=== PATIENT | female | born 1930 | race Caucasian/White ===

== ENCOUNTER 2020-05-09 15:30 | Emergency (ER) | payer MEDICARE, OTHER ==
--- NOTE | 2020-05-09 15:43 | ER Document Report ---
ED Medical Screen (RME) - General Chief Complaint: Altered Mental Status Stated Complaint: ALTERED MENTAL STATUS Time Seen by Provider: 05/09/20 15:36 Mode of Arrival: Wheelchair Information source: Legal Guardian Cannot obtain history due to: Dementia Notes: 89-year-old female presented to ED for increased altered mental status with increased confusion. Her power of research attorney states that she is her confusion is much worse since . She states she is walking around inside the house and outside the house naked. She states she is masturbating herself in front of the power turn his children. She states she is also goes in the bathroom naked and leaves the door open in front of the young children. Problem turning states her children 5 and 10 years old and she cannot keep this patient in her home anymore. She states that family convinced her to take a power of research attorney for this patient on August 2017. She states the patient is much worse now and she really cannot handle her at home with her children. She states she talked to social services technician and because she forgot 1 form then closed the case. She states she is trying to get her placed but she does not have a way to do it. I have ordered blood and urine to rule out urinary tract infection and other causes for her increased confusion. Power of research attorney states she needs to be placed in a facility to care for her. I have greeted and performed a rapid initial assessment of this patient. A comprehensive ED assessment and evaluation of the patient, analysis of test results and completion of medical decision making process will be conducted by an additional ED providers. - Related Data Allergies/Adverse Reactions: No Known Allergies Allergy (Unverified 05/09/20 15:41)
[2020-05-09 16:13] LABS: ABSOLUTE EOSINOPHILS # (AUTO) 0.1 10^3/uL (0.0-0.6); ABSOLUTE LYMPHOCYTES (AUTO) 1.6 10^3/uL (0.5-4.7); ABSOLUTE MONOCYTES (AUTO) 0.4 10^3/uL (0.1-1.4); ABSOLUTE NEUT (AUTO) 3.3 10^3/uL (1.7-8.2); BASOPHILS % (AUTO) 0.9 % (0-2); EOSINOPHILS % (AUTO) 1.7 % (0-6); HEMATOCRIT 42.2 % (36.0-47.0); HEMOGLOBIN 14.6 g/dL (12.0-15.5); LYMPHOCYTES % (AUTO) 29.8 % (13-45); MEAN CORPUSCULAR HEMOGLOBIN 34.4 pg (27.0-33.4); MEAN CORPUSCULAR HGB CONC 34.5 g/dL (32.0-36.0); MEAN CORPUSCULAR VOLUME 100 fl (80-97); MONOCYTES % (AUTO) 7.2 % (3-13); PLATELET COUNT 166 10^3/uL (150-450); RED BLOOD COUNT 4.24 10^6/uL (3.72-5.28); RED CELL DISTRIBUTION WIDTH 12.7 % (11.5-14.0); SEGMENTED NEUTROPHILS % (AUTO) 60.4 % (42-78); TOTAL CELLS COUNTED % (AUTO) 100 %; WHITE BLOOD COUNT 5.4 10^3/uL (4.0-10.5)
[2020-05-09 16:18] LABS: PROTHROMBIN TIME 13.4 SEC (11.4-15.4)
[2020-05-09 16:34] LABS: ALBUMIN 4.1 g/dL (3.5-5.0); ALKALINE PHOSPHATASE 69 U/L (38-126); ANION GAP 9 (5-19); ASPARTATE AMINO TRANSFERASE 23 U/L (14-36); BILIRUBIN,DIRECT 0.3 mg/dL (0.0-0.4); BILIRUBIN,TOTAL 1.1 mg/dL (0.2-1.3); BLOOD UREA NITROGEN 12 mg/dL (7-20); CALCIUM 9.2 mg/dL (8.4-10.2); CARBON DIOXIDE 28 mmol/L (22-30); CHLORIDE 102 mmol/L (98-107); GLUCOSE 96 mg/dL (75-110); POTASSIUM 3.9 mmol/L (3.6-5.0); TOTAL PROTEIN 7.2 g/dL (6.3-8.2)
[2020-05-09 16:36] LABS: ALCOHOL < 10 mg/dL (NONE DETECTED)
--- NOTE | 2020-05-09 18:53 | RADIOLOGY REPORT (SQ) ---
EXAM DESCRIPTION: CHEST SINGLE VIEW IMAGES COMPLETED DATE/TIME: 05/09/2020 6:30 pm REASON FOR STUDY: AMS COMPARISON: None. NUMBER OF VIEWS: One view. TECHNIQUE: Single frontal radiographic view of the chest acquired. LIMITATIONS: None. FINDINGS: LUNGS AND PLEURA: No opacities, masses or pneumothorax. No pleural effusion. MEDIASTINUM AND HILAR STRUCTURES: No masses. Contour normal. HEART AND VASCULAR STRUCTURES: Heart normal in size. Normal vasculature. BONES: No acute findings. HARDWARE: None in the chest. OTHER: No other significant finding. IMPRESSION: NO SIGNIFICANT RADIOGRAPHIC FINDING IN THE CHEST. TECHNICAL DOCUMENTATION: JOB ID: [id number] 2010 [employer]- All Rights Reserved Reading location - IP/workstation name: [email or web address]
--- NOTE | 2020-05-09 18:56 | RADIOLOGY REPORT (SQ) ---
EXAM DESCRIPTION: CT HEAD WITHOUT IMAGES COMPLETED DATE/TIME: 05/09/2020 6:36 pm REASON FOR STUDY: AMS COMPARISON: None. TECHNIQUE: Axial images acquired through the brain without intravenous contrast. Images reviewed wi th bone, brain and subdural windows. Images stored on PACS. All CT scanners at this facility use dose modulation, iterative reconstruction, and/or weight based d osing when appropriate to reduce radiation dose to as low as reasonably achievable (ALARA). [facility]: Dose Right [facility]: CareDose [facility]: Dose Right [facility]: Teradose 4D [facility]: [employer] RADIATION DOSE: CT Rad equipment meets quality standard of care and radiation dose reduction techniq ues were employed. CTDIvol: 53.2 mGy. DLP: 1017 mGy-cm.mGy. LIMITATIONS: None. FINDINGS: VENTRICLES: Prominent. CEREBRUM: No masses. No hemorrhage. No midline shift. Areas of low density in the white matter mos t likely due to chronic micro-vascular ischemic change. No evidence for acute infarction. Heavy layla cifications of the carotid siphons are present. CEREBELLUM: No masses. No hemorrhage. No alteration of density. No evidence for acute infarction. EXTRAAXIAL SPACES: Age-related involutional change. No fluid collections. No masses. ORBITS AND GLOBE: No intra- or extraconal masses. Normal contour of globe without masses. CALVARIUM: No fracture. PARANASAL SINUSES: No fluid or mucosal thickening. SOFT TISSUES: No mass or hematoma. OTHER: No other significant finding. IMPRESSION: No acute intracranial hemorrhage, mass effect/ midline shift, or large vessel territory hypodensity. Background of chronic microvascular ischemic and age-related involutional changes. EVIDENCE OF ACUTE STROKE: NO. TECHNICAL DOCUMENTATION: JOB ID: [id number] Quality ID # [id number]: Final reports with documentation of one or more dose reduction techniques (e.g., Au tomated exposure control, adjustment of the mA and/or kV according to patient size, use of iterative reconstruction technique) 2010 [employer]- All Rights Reserved Reading location - IP/workstation name: [email or web address]
--- NOTE | 2020-05-09 19:19 | EKG REPORT ---
SEVERITY:- NORMAL ECG - SINUS RHYTHM : Confirmed by: Bienvenido Gaffney MD 09-May-2020 19:18:49
[2020-05-09 21:03] LABS: AMORPHOUS SEDIMENT,URINE TRACE /HPF; APPEARANCE,URINE SLIGHTLY-CLOUDY; BILIRUBIN,URINE NEGATIVE (NEGATIVE); COLOR,URINE YELLOW; GLUCOSE, URINE NEGATIVE (NEGATIVE); KETONES,URINE 20 mg/dL (NEGATIVE); LEUKOCYTE ESTERASE,URINE NEGATIVE (NEGATIVE); NITRITE,URINE NEGATIVE (NEGATIVE); PROTEIN,URINE NEGATIVE (NEGATIVE); URINE SPECIFIC GRAVITY 1.017
[2020-05-09 21:16] LABS: URINE AMPHETAMINES SCREEN NEGATIVE; URINE BARBITURATES SCREEN NEGATIVE; URINE BENZODIAZEPINES SCREEN NEGATIVE; URINE COCAINE SCREEN NEGATIVE; URINE MARIJUANA (THC) SCREEN NEGATIVE; URINE METHADONE SCREEN NEGATIVE; URINE PHENCYCLIDINE SCREEN NEGATIVE
[2020-05-09] MEDS ORDERED: NORMAL SALINE 500 ML IV ONE (21:30)
--- NOTE | 2020-05-09 22:13 | ER Document Report ---
ED General - General Chief Complaint: Altered Mental Status Stated Complaint: ALTERED MENTAL STATUS Time Seen by Provider: 05/09/20 15:36 Mode of Arrival: Wheelchair - HPI Notes: Patient is an 89-year-old female with a past medical history of dementia who presents with her POA for worsening mental status. Her POA states that the patient lives with her for the past year. They are originally from [place] where she had home health care 3 days a week. She does not have that here. She does go to the adult daycare 4 days a week. The POA states that patient has been having worsening of her mental status since . She states that she has been walking around naked. Today, she walked out of the house naked. The POA has 2 young kids at home and is concerned that she has been acting like this in front of them. She states she is unable to take care of her at home anymore and would like her to be placed somewhere. She states that she has had decline in her talking ability as well. She has been taking her medications as prescribed. No recent illnesses. - Related Data Allergies/Adverse Reactions: No Known Allergies Allergy (Unverified 05/09/20 15:41) Past Medical History - General Information source: Legal Guardian - Social History Smoking Status: Unknown if Ever Smoked Family History: Other Review of Systems - Review of Systems -: Yes ROS unobtainable due to patient's medical condition Neurological/Psychological: Dementia Physical Exam - Vital signs Vitals: Temp Pulse Resp BP Pulse Ox 97.4 F 66 16 151/70 H 97 05/09/20 15:36 05/09/20 15:36 05/09/20 15:36 05/09/20 15:36 05/09/20 15:36 - General General appearance: Appears well Notes: VITAL SIGNS: Within normal limits. GENERAL: No acute distress, non-toxic appearance. HEAD: Normal with no signs of head trauma. EYES: EOMI, conjunctiva normal, no discharge. EARS: Hearing grossly intact. NOSE: Normal. NECK: Normal range of motion, no tenderness, supple, no lymphadenopathy, No adenopathy, no JVD. CHEST: Clear breath sounds bilaterally. No wheezes, rales, or rhonchi. CARDIAC: Regular rate and rhythm. VASCULAR: No Edema. Peripheral pulses normal and equal in all extremities. ABDOMEN: Normal and soft with no tenderness, no masses or pulsatile masses. GASTROINTESTINAL: Bowel sounds normal GENITOURINARY: Normal, No tenderness LYMPATHTIC: No lymphadenopathy noted. MUSCULOSKELETAL: Good range of motion of all major joints. Extremities without clubbing, cyanosis or edema. NEUROLOGICAL: Alert. No focal sensory or strength deficits.Follows commands appropriately. Does not speak but is able to follow simple commands and moves all extremities. SKIN: Normal appearance with no rashes or lesions. Course - Re-evaluation Re-evalutation: 05/09/20 22:12 Patient's work-up was unremarkable. She does not have evidence of infection or head injury. She will need to have social work consulted. Nursing staff states that she is talking now. I did discuss with the hospitalist who agreed that patient should be a social hold and does not need to be admitted. I reviewed her medications and ordered medications that she had recently been prescribed. She will need a formal pharmacy med rec in the morning. 05/10/20 00:58 05/10/20 01:59 - Vital Signs Vital signs: Temp Pulse Resp BP Pulse Ox 97.4 F 59 L 20 161/51 H 97 05/09/20 23:54 05/09/20 23:54 05/09/20 23:54 05/09/20 23:54 05/09/20 23:54 - Laboratory Result Diagrams: 05/09/20 16:04 05/09/20 16:04 Laboratory results interpreted by me: 05/09/20 05/09/20 05/09/20 16:04 16:04 20:22 MCV 100 H MCH 34.4 H Creatinine 0.49 L Urine Ketones 20 H Urine Urobilinogen 2.0 H Urine Ascorbic Acid 20 H Discharge - Discharge Clinical Impression: Mental status alteration Qualifiers: Altered mental status type: unspecified Qualified Code(s): R41.82 - Altered mental status, unspecified Dementia Qualifiers: Dementia type: unspecified type Dementia behavioral disturbance: with behavioral disturbance Qualified Code(s): F03.91 - Unspecified dementia with behavioral disturbance Condition: Stable Disposition: OTHER
[2020-05-10] MEDS ORDERED: HALOPERIDOL LACTATE INJ 5 MG/1 ML VIAL IV ONE (02:43)
[2020-05-10] MEDS ORDERED: HALOPERIDOL LACTATE INJ 5 MG/1 ML VIAL IM ONE (02:56)
[2020-05-10] MEDS: LEVOTHYROXINE SODIUM 0.112 MG TABLET PO SCH (08:13)
[2020-05-10] MEDS: AMLODIPINE BESYLATE 5 MG TABLET PO SCH (10:42)
[2020-05-10] MEDS: DONEPEZIL HCL 5 MG TABLET PO SCH (21:13)
[2020-05-10] MEDS: ATORVASTATIN CALCIUM 20 MG TABLET PO SCH (21:13)
[2020-05-11] MEDS: LEVOTHYROXINE SODIUM 0.112 MG TABLET PO SCH (05:13)
[2020-05-11] MEDS: AMLODIPINE BESYLATE 5 MG TABLET PO SCH (09:54)
--- NOTE | 2020-05-11 16:19 | ER Document Report ---
Doctor's Note Notes: 05/11/20 16:18 Patient is resting comfortably in the bed with no complaints. She is easily arousable. She denies any pain or problems at this time. Patient is currently awaiting placement. Social work is asked that I obtain a consultation from psychiatry secondary to patient having dementia with behavioral disturbances as this will help to facilitate placement. This order has been placed.
--- NOTE | 2020-05-11 17:14 | ER Document Report ---
Doctor's Note Notes: 05/11/20 17:13 Provider note to assess status of this patient. Patient is resting comfortably awaiting placement. Patient has a history of dementia otherwise is doing well. Please note this is a note concerning 10 May yesterday. I do not have enough time to place a note yesterday.
--- NOTE | 2020-05-11 18:53 | PSYCHOLOGICAL NOTE ---
Psych Note - Psych Note Date seen by psych provider: 05/11/20 Time seen by psych provider: 18:00 Psych Note: Reason for Consult: Medication recommendations patient presented with caregiver/POA; stated patient has had an increase in behaviors of masturbating (patient is suffering from uterine prolapse and appears the patient's caregiver was misunderstanding the patient's attempts at "fixing" the placement of her uterus), walking around naked, doesn't close doors and this morning was found outside naked. states she can no longer take care of her, states there is also a 5 and 10 year old in the house. states has hx of alzheimers/dementia. Medication recommendations per [facility]'s contracted psychiatrist are as follows: Discontinue Aripect Start Depakote 250mg twice daily Start Buspar 5mg twice daily Impression/Plan: Patient is cleared from acute psychiatric services. Medical staff requested assistance in medication recommendations to assist with behaviours. Medication recommendations have been provided. Dr. Brito was consulted on the consulted on the care and management of this patient; attending physician is in agreement with recommendations and disposition.
[2020-05-11] MEDS: BUSPIRONE HCL 10 MG TABLET PO SCH (21:18)
[2020-05-11] MEDS: ATORVASTATIN CALCIUM 20 MG TABLET PO SCH (21:19)
[2020-05-11] MEDS: DIVALPROEX SODIUM 250 MG TABLET.DR PO SCH (21:19)
[2020-05-11] MEDS: DONEPEZIL HCL 5 MG TABLET PO SCH (21:19)
[2020-05-12] MEDS: LEVOTHYROXINE SODIUM 0.112 MG TABLET PO SCH (06:41)
[2020-05-12] MEDS: BUSPIRONE HCL 10 MG TABLET PO SCH ×2 (10:05→17:36)
[2020-05-12] MEDS: DIVALPROEX SODIUM 250 MG TABLET.DR PO SCH ×2 (10:05→17:36)
[2020-05-12] MEDS: AMLODIPINE BESYLATE 5 MG TABLET PO SCH (10:05)
--- NOTE | 2020-05-12 10:06 | ER Document Report ---
Doctor's Note Notes: 05/12/20 10:06 Patient reevaluated this morning. Patient has no complaints. She is resting comfortably in the bed and is conversant. She states that she is not hungry and therefore is only had a minimal breakfast. Her abdomen is soft nontender nondistended. Heart was regular rate and rhythm. Lungs are clear to auscul tation bilaterally. She denied any concerns or problems at this time. She is currently awaiting permanent placement.
[2020-05-12] MEDS: ATORVASTATIN CALCIUM 20 MG TABLET PO SCH (21:45)
[2020-05-12] MEDS: DONEPEZIL HCL 5 MG TABLET PO SCH (21:45)
[2020-05-13] MEDS: LEVOTHYROXINE SODIUM 0.112 MG TABLET PO SCH (06:42)
[2020-05-13] MEDS: DIVALPROEX SODIUM 250 MG TABLET.DR PO SCH ×2 (10:13→18:55)
[2020-05-13] MEDS: AMLODIPINE BESYLATE 5 MG TABLET PO SCH (10:13)
[2020-05-13] MEDS: BUSPIRONE HCL 10 MG TABLET PO SCH ×2 (10:13→18:55)
--- NOTE | 2020-05-13 12:05 | ER Document Report ---
Doctor's Note Notes: 05/13/20 12:04 Patient seen this morning. She is resting comfortably in bed. Nurse states that patient has been urinating frequently and has foul-smelling urine. A UA will be obtained for evaluation. Patient also has obvious uterine prolapse but without strangulation. I did call and discussed the case with the LARGE SHEETFED PRESS OPERATOR on- call, Dr. Demarco. He states that other than a pessary there is not much that can be done at this time. He states that possibly a permanent Polanco could be left in the patient however I think this would not be medically appropriate as I think it would lead to worse infectious problems.
[2020-05-13 14:10] LABS: APPEARANCE,URINE CLEAR; BILIRUBIN,URINE NEGATIVE (NEGATIVE); COLOR,URINE YELLOW; GLUCOSE, URINE NEGATIVE (NEGATIVE); KETONES,URINE NEGATIVE (NEGATIVE); PROTEIN,URINE NEGATIVE (NEGATIVE); URINE SPECIFIC GRAVITY 1.012
[2020-05-13] MEDS: DONEPEZIL HCL 5 MG TABLET PO SCH (23:06)
[2020-05-13] MEDS: ATORVASTATIN CALCIUM 20 MG TABLET PO SCH (23:07)
[2020-05-14] MEDS ORDERED: ACETAMINOPHEN 325 MG TABLET PO ONE (00:48)
[2020-05-14] MEDS: LEVOTHYROXINE SODIUM 0.112 MG TABLET PO SCH (06:35)
[2020-05-14] MEDS: AMLODIPINE BESYLATE 5 MG TABLET PO SCH (09:48)
[2020-05-14] MEDS: DIVALPROEX SODIUM 250 MG TABLET.DR PO SCH ×2 (09:48→17:44)
[2020-05-14] MEDS: BUSPIRONE HCL 10 MG TABLET PO SCH ×2 (09:49→17:44)
[2020-05-14 17:30] LABS: APPEARANCE,URINE SLIGHTLY-CLOUDY; BILIRUBIN,URINE NEGATIVE (NEGATIVE); COLOR,URINE YELLOW; GLUCOSE, URINE NEGATIVE (NEGATIVE); KETONES,URINE TRACE mg/dL (NEGATIVE); PROTEIN,URINE NEGATIVE (NEGATIVE); URINE SPECIFIC GRAVITY 1.016; UROBILINOGEN,URINE NEGATIVE mg/dL (<2.0)
[2020-05-14] MEDS: DONEPEZIL HCL 5 MG TABLET PO SCH (22:06)
[2020-05-14] MEDS: ATORVASTATIN CALCIUM 20 MG TABLET PO SCH (22:07)
[2020-05-15] MEDS: LEVOTHYROXINE SODIUM 0.112 MG TABLET PO SCH (06:51)
[2020-05-15] MEDS: AMLODIPINE BESYLATE 5 MG TABLET PO SCH (10:13)
[2020-05-15] MEDS: DIVALPROEX SODIUM 250 MG TABLET.DR PO SCH ×2 (10:13→18:43)
[2020-05-15] MEDS: BUSPIRONE HCL 10 MG TABLET PO SCH ×2 (10:13→18:41)
--- NOTE | 2020-05-15 19:24 | ER Document Report ---
Doctor's Note Notes: 05/15/20 19:23 Patient has been calm today with no new problems noted. Vital signs are stable. Chest is clear. Ultimate disposition is still pending.
[2020-05-15] MEDS: DONEPEZIL HCL 5 MG TABLET PO SCH (21:36)
[2020-05-15] MEDS: ATORVASTATIN CALCIUM 20 MG TABLET PO SCH (21:36)
[2020-05-16] MEDS: LEVOTHYROXINE SODIUM 0.112 MG TABLET PO SCH (06:17)
[2020-05-16] MEDS: DIVALPROEX SODIUM 250 MG TABLET.DR PO SCH ×2 (10:46→18:10)
[2020-05-16] MEDS: BUSPIRONE HCL 10 MG TABLET PO SCH ×2 (10:46→18:07)
[2020-05-16] MEDS: AMLODIPINE BESYLATE 5 MG TABLET PO SCH (10:47)
[2020-05-16] MEDS ORDERED: DOCUSATE SODIUM 100 MG CAPSULE PO ONE (10:57)
--- NOTE | 2020-05-16 20:37 | ER Document Report ---
Doctor's Note Notes: 05/16/20 20:36 Patient is resting quietly, no new complaints, staff states that she has not exhibited agitation or inappropriate exhibition. Awaiting disposition.
[2020-05-16] MEDS: DONEPEZIL HCL 5 MG TABLET PO SCH (21:07)
[2020-05-16] MEDS: ATORVASTATIN CALCIUM 20 MG TABLET PO SCH (21:07)
[2020-05-17] MEDS: LEVOTHYROXINE SODIUM 0.112 MG TABLET PO SCH (05:59)
[2020-05-17] MEDS: AMLODIPINE BESYLATE 5 MG TABLET PO SCH (10:09)
[2020-05-17] MEDS: DIVALPROEX SODIUM 250 MG TABLET.DR PO SCH ×2 (10:09→18:57)
[2020-05-17] MEDS: BUSPIRONE HCL 10 MG TABLET PO SCH ×2 (10:10→18:57)
--- NOTE | 2020-05-17 21:39 | ER Document Report ---
Doctor's Note Notes: 05/17/20 21:39 Patient is resting quietly with no complaints, states that she did not eat dinner, she was not hungry at this time. Her vital signs are stable and she is awaiting disposition.
[2020-05-17] MEDS: DONEPEZIL HCL 5 MG TABLET PO SCH (22:36)
[2020-05-17] MEDS: ATORVASTATIN CALCIUM 20 MG TABLET PO SCH (22:36)
[2020-05-18] MEDS: LEVOTHYROXINE SODIUM 0.112 MG TABLET PO SCH (06:46)
[2020-05-18] MEDS: BUSPIRONE HCL 10 MG TABLET PO SCH ×2 (09:49→18:59)
[2020-05-18] MEDS: DIVALPROEX SODIUM 250 MG TABLET.DR PO SCH ×2 (09:49→18:59)
[2020-05-18] MEDS: AMLODIPINE BESYLATE 5 MG TABLET PO SCH (09:49)
--- NOTE | 2020-05-18 16:46 | ER Document Report ---
Doctor's Note Notes: 05/18/20 16:45 Patient seen and evaluated just now. Patient resting comfortably in the bed eating. Patient has no complaints at this time. Heart is regular rate and rhythm. Lungs are clear to auscultation. According to nursing patient is getting to be more reliant on assistance when doing activities of daily living. I am concerned this may be secondary to atrophy as she has been relatively bedridden for the last week. I did discuss today with physical therapy increasing the occurrences of physical therapy. However they state that 3 days a week is the most that they can do. I am also going to check patient's laboratories at this time.
[2020-05-18] MEDS: ATORVASTATIN CALCIUM 20 MG TABLET PO SCH (23:42)
[2020-05-18] MEDS: DONEPEZIL HCL 5 MG TABLET PO SCH (23:42)
[2020-05-19 00:14] LABS: ANION GAP 6 (5-19); BLOOD UREA NITROGEN 17 mg/dL (7-20); CALCIUM 8.8 mg/dL (8.4-10.2); CARBON DIOXIDE 30 mmol/L (22-30); CHLORIDE 99 mmol/L (98-107); GLUCOSE 116 mg/dL (75-110); POTASSIUM 3.8 mmol/L (3.6-5.0)
[2020-05-19] MEDS: LEVOTHYROXINE SODIUM 0.112 MG TABLET PO SCH (06:06)
[2020-05-19 09:30] LABS: ABSOLUTE BASOPHILS # (AUTO) 0.1 10^3/uL (0.0-0.2); ABSOLUTE EOSINOPHILS # (AUTO) 0.2 10^3/uL (0.0-0.6); ABSOLUTE LYMPHOCYTES (AUTO) 1.4 10^3/uL (0.5-4.7); ABSOLUTE MONOCYTES (AUTO) 0.6 10^3/uL (0.1-1.4); ABSOLUTE NEUT (AUTO) 3.3 10^3/uL (1.7-8.2); BASOPHILS % (AUTO) 1.2 % (0-2); EOSINOPHILS % (AUTO) 2.7 % (0-6); HEMATOCRIT 37.4 % (36.0-47.0); LYMPHOCYTES % (AUTO) 24.7 % (13-45); MEAN CORPUSCULAR HEMOGLOBIN 34.1 pg (27.0-33.4); MEAN CORPUSCULAR HGB CONC 34.8 g/dL (32.0-36.0); MEAN CORPUSCULAR VOLUME 98 fl (80-97); MONOCYTES % (AUTO) 11.1 % (3-13); PLATELET COUNT 143 10^3/uL (150-450); RED BLOOD COUNT 3.82 10^6/uL (3.72-5.28); RED CELL DISTRIBUTION WIDTH 12.2 % (11.5-14.0); SEGMENTED NEUTROPHILS % (AUTO) 60.3 % (42-78); TOTAL CELLS COUNTED % (AUTO) 100 %; WHITE BLOOD COUNT 5.5 10^3/uL (4.0-10.5)
[2020-05-19] MEDS: BUSPIRONE HCL 10 MG TABLET PO SCH ×2 (09:41→17:41)
[2020-05-19] MEDS: DIVALPROEX SODIUM 250 MG TABLET.DR PO SCH ×2 (09:41→17:42)
[2020-05-19] MEDS: AMLODIPINE BESYLATE 5 MG TABLET PO SCH (09:41)
--- NOTE | 2020-05-19 11:07 | ER Document Report ---
Doctor's Note Notes: 05/19/20 11:06 Patient reevaluated this morning. Patient was apparently declined yesterday by Lucille [facility]. Social work is still working on placement. This morning patient has no complaints. She is eating breakfast without problem. Heart is regular rate and rhythm. Lungs are clear to auscultation bilaterally. Abdomen soft nontender nondistended. Patient had her laboratories rechecked yesterday CBC and chemistry are stable without any acute changes that require intervention. I did speak with physical therapy who is going to have the patient receive therapy 3 days a week. I have also now placed an order to have the patient ambulated each shift by nursing staff.
[2020-05-19] MEDS: ATORVASTATIN CALCIUM 20 MG TABLET PO SCH (22:12)
[2020-05-19] MEDS: DONEPEZIL HCL 5 MG TABLET PO SCH (22:14)
[2020-05-20] MEDS: LEVOTHYROXINE SODIUM 0.112 MG TABLET PO SCH (06:04)
[2020-05-20] MEDS: DIVALPROEX SODIUM 250 MG TABLET.DR PO SCH ×2 (09:22→17:53)
[2020-05-20] MEDS: BUSPIRONE HCL 10 MG TABLET PO SCH ×2 (09:22→17:54)
[2020-05-20] MEDS: AMLODIPINE BESYLATE 5 MG TABLET PO SCH (09:22)
[2020-05-20] MEDS: ATORVASTATIN CALCIUM 20 MG TABLET PO SCH (22:25)
[2020-05-20] MEDS: DONEPEZIL HCL 5 MG TABLET PO SCH (22:25)
[2020-05-21] MEDS: LEVOTHYROXINE SODIUM 0.112 MG TABLET PO SCH (06:27)
[2020-05-21] MEDS: AMLODIPINE BESYLATE 5 MG TABLET PO SCH (11:05)
[2020-05-21] MEDS: DONEPEZIL HCL 5 MG TABLET PO SCH (11:05)
[2020-05-21] MEDS: DIVALPROEX SODIUM 250 MG TABLET.DR PO SCH ×2 (11:09→18:31)
[2020-05-21] MEDS: BUSPIRONE HCL 10 MG TABLET PO SCH ×2 (11:10→18:31)
--- NOTE | 2020-05-21 18:30 | ER Document Report ---
Doctor's Note Notes: 05/21/20 18:29 Patient's chart was reviewed. She has apparently been turned down everywhere they have tried to find her placement. She is doing well today. She has been up walking with her walker a few times according to the nurse. She is resting comfortably in bed at this time. I did see her earlier when I first came in sitting up eating. Apparently she will continue to be a resident of the emergency department until next week when they can begin calling other facilities to try to find her placement.
[2020-05-21] MEDS: ATORVASTATIN CALCIUM 20 MG TABLET PO SCH (23:00)
[2020-05-22] MEDS: LEVOTHYROXINE SODIUM 0.112 MG TABLET PO SCH (06:52)
[2020-05-22] MEDS: AMLODIPINE BESYLATE 5 MG TABLET PO SCH (09:01)
[2020-05-22] MEDS: BUSPIRONE HCL 10 MG TABLET PO SCH ×2 (09:03→19:52)
[2020-05-22] MEDS: DIVALPROEX SODIUM 250 MG TABLET.DR PO SCH ×2 (09:04→19:52)
--- NOTE | 2020-05-22 18:29 | ER Document Report ---
Doctor's Note Notes: 05/22/20 18:28 Patient has been reluctant to get up and walk today. She required additional assistance getting up to the bedside commode. I just went to check on her, she did not eat much of her supper. The nurses report that they were going to try to get her up walking again later this evening. She remains on social hold while attempts were made to find placement.
[2020-05-22] MEDS: DONEPEZIL HCL 5 MG TABLET PO SCH (23:21)
[2020-05-22] MEDS: ATORVASTATIN CALCIUM 20 MG TABLET PO SCH (23:21)
[2020-05-23] MEDS: LEVOTHYROXINE SODIUM 0.112 MG TABLET PO SCH (05:46)
[2020-05-23] MEDS: AMLODIPINE BESYLATE 5 MG TABLET PO SCH (11:20)
[2020-05-23] MEDS: BUSPIRONE HCL 10 MG TABLET PO SCH ×2 (11:21→18:37)
[2020-05-23] MEDS: DIVALPROEX SODIUM 250 MG TABLET.DR PO SCH ×2 (11:21→18:37)
[2020-05-23] MEDS: DONEPEZIL HCL 5 MG TABLET PO SCH (23:21)
[2020-05-23] MEDS: ATORVASTATIN CALCIUM 20 MG TABLET PO SCH (23:21)
[2020-05-24] MEDS: LEVOTHYROXINE SODIUM 0.112 MG TABLET PO SCH (06:14)
[2020-05-24] MEDS: DIVALPROEX SODIUM 250 MG TABLET.DR PO SCH ×2 (10:24→18:24)
[2020-05-24] MEDS: BUSPIRONE HCL 10 MG TABLET PO SCH ×2 (10:24→18:24)
[2020-05-24] MEDS: AMLODIPINE BESYLATE 5 MG TABLET PO SCH (10:25)
--- NOTE | 2020-05-24 16:43 | ER Document Report ---
Doctor's Note Notes: 05/24/20 16:42 Patient seen and examined this morning. Patient has been ambulated by the nurse under my supervision and patient is also had physical therapy today. She was able to ambulate with assistance well. She is also had breakfast and tolerated this well. Patient has had no complaints. Patient's heart regular rate and rhythm. Lungs are clear to auscultation. Abdomen soft nontender and nondistended. Placement is still being pursued.
[2020-05-24] MEDS: DONEPEZIL HCL 5 MG TABLET PO SCH (23:03)
[2020-05-24] MEDS: ATORVASTATIN CALCIUM 20 MG TABLET PO SCH (23:03)
[2020-05-25] MEDS: LEVOTHYROXINE SODIUM 0.112 MG TABLET PO SCH (06:56)
[2020-05-25] MEDS: AMLODIPINE BESYLATE 5 MG TABLET PO SCH (11:17)
[2020-05-25] MEDS: DIVALPROEX SODIUM 250 MG TABLET.DR PO SCH ×2 (11:17→18:26)
[2020-05-25] MEDS: BUSPIRONE HCL 10 MG TABLET PO SCH ×2 (11:17→18:27)
--- NOTE | 2020-05-25 19:07 | ER Document Report ---
Doctor's Note Notes: 05/25/20 19:06 Patient seen and examined. Patient had no complaints. She was sitting in chair eating lunch. Vitals have been stable. Work on placement continues.
[2020-05-25] MEDS: ATORVASTATIN CALCIUM 20 MG TABLET PO SCH (21:56)
[2020-05-25] MEDS: DONEPEZIL HCL 5 MG TABLET PO SCH (21:57)
[2020-05-26] MEDS: LEVOTHYROXINE SODIUM 0.112 MG TABLET PO SCH (07:26)
[2020-05-26] MEDS: BUSPIRONE HCL 10 MG TABLET PO SCH ×2 (09:31→17:39)
[2020-05-26] MEDS: DIVALPROEX SODIUM 250 MG TABLET.DR PO SCH ×2 (09:31→17:39)
[2020-05-26] MEDS: AMLODIPINE BESYLATE 5 MG TABLET PO SCH (09:31)
--- NOTE | 2020-05-26 10:26 | ER Document Report ---
Doctor's Note Notes: 05/26/20 10:25 Patient seen and examined this morning. Patient was resting comfortably in a chair with no complaints. She was eating breakfast without problem. Currently patient has now gone back to sleep and is resting comfortably in the bed. Continue to work on placement.
[2020-05-26] MEDS: DONEPEZIL HCL 5 MG TABLET PO SCH (21:34)
[2020-05-26] MEDS: ATORVASTATIN CALCIUM 20 MG TABLET PO SCH (21:34)
[2020-05-27] MEDS: LEVOTHYROXINE SODIUM 0.112 MG TABLET PO SCH (06:03)
--- NOTE | 2020-05-27 08:06 | ER Document Report ---
Doctor's Note Notes: 05/27/20 08:03 Patient is lying in bed, awake and is in no acute distress. Patient makes good eye contact and appropriate conversation. Patient appears to be in no acute distress. Patient is going to be transferred to a [facility] facility today. Patient appears stable for transfer. Physical exam: Heartregular rate and rhythm, no murmurs or rubs, lungsnormal breath sounds, no tachypnea, abdomenabdomen is nontender, nondistended with normal bowel sounds, psychnormal speech, patient is pleasant, appropriate conversation, no psychomotor agitation appreciated. Impression/plan: This is a patient with a history of Alzheimer's dementia, no longer to care for self in need of assistance with ADLs etc. Patient is going to be transported to a facility later this a.m.
[2020-05-27 08:39] VITALS: BP 170/71
== END 2020-05-27 08:47 ==
LOC: ER 15:30
DX: G30.9 Alzheimer's disease, unspecified (principal); F02.81 Dementia in other diseases classified elsewhere, unspecified severity, with behavioral disturbance; N81.4 Uterovaginal prolapse, unspecified; R35.0 Frequency of micturition; Z75.1 Person awaiting admission to adequate facility elsewhere; Z74.01 Bed confinement status
CPT/HCPCS: 93005; 99285; 96372; 96360; 36415; 87086; 82962; 80307 ×2; 83735; 85025; 85610; 80048; 80053; 81001; 84484; 71045; 70450; 93010; A9270 ×103; J1630; J7040